=== PATIENT | male | born 1990 ===

== ENCOUNTER 2024-02-18 09:09 | Emergency (ER) | payer SELFPAY ==
[2024-02-18] MEDS: Sodium Chloride 0.9% 1,000 ML IV ONE (10:37)
[2024-02-18] MEDS: Ketorolac 30 MG/ML SDV IVPUSH ONE (10:37)
[2024-02-18 10:43] LABS: EOSINOPHILS PERCENT AUTO 4.9 % (0.0-6.0); HEMATOCRIT 39.9 % (42.0-52.0); HEMOGLOBIN 14.2 g/dL (14.0-18.0); IMMATURE GRAN ABSOLUTE AUTO 0.02 K/uL (0.00-0.05); IMMATURE GRAN PERCENT AUTO 0.5 % (0.0-0.4); LYMPHOCYTES ABSOLUTE AUTO 1.15 K/uL (1.00-4.80); LYMPHOCYTES PERCENT AUTO 28.1 % (24.0-44.0); MEAN CORPUSCULAR HEMOGLOBIN 31.4 pg (28.0-32.0); MEAN CORPUSCULAR HGB CONC 35.6 g/dL (32.0-36.0); MEAN CORPUSCULAR VOLUME 88.3 fL (83.0-99.0); MONOCYTES ABSOLUTE AUTO 0.53 K/uL (0.00-0.80); NEUTROPHILS ABSOLUTE AUTO 2.19 K/uL (1.80-7.70); NEUTROPHILS PERCENT AUTO 53.5 % (41.0-71.0); PLATELET COUNT,PLT 220 K/uL (150-400); RED BLOOD CELL COUNT 4.52 M/uL (4.52-5.90); WHITE BLOOD CELL COUNT,WBC 4.09 K/uL (3.9-11.3)
[2024-02-18 10:47] LABS: APPEARANCE,URINE CLEAR; GLUCOSE,URINE 250 mg/dL (NEGATIVE); KETONES,URINE 15 mg/dL (NEGATIVE); LEUKOCYTE ESTERASE,URINE MODERATE (NEGATIVE); NITRITE,URINE POSITIVE (NEGATIVE); OCCULT BLOOD,URINE TRACE-INTACT (NEGATIVE); PROTEIN,URINE 100 mg/dL (NEGATIVE); UROBILINOGEN,URINE >=8.0 EU/dL (<2.0)
[2024-02-18 10:53] LABS: BILIRUBIN,URINE MODERATE (NEGATIVE)
[2024-02-18 11:00] LABS: BACTERIA,URINE FEW (NEGATIVE); COLOR,URINE RED; EPITHELIAL CELLS,URINE RARE (NONE-FEW); MUCUS,URINE LIGHT (NONE-MOD); WBC,URINE 0-2 (0-5/HPF)
[2024-02-18 11:14] LABS: A/G RATIO 1.1 (0.9-1.6); ALBUMIN 3.8 g/dL (3.4-5.0); BILIRUBIN TOTAL 1.3 mg/dL (0.2-1.0); CALCIUM 8.9 mg/dL (8.5-10.1); CARBON DIOXIDE,CO2 30.3 mmol/L (21.0-32.0); CREATININE 0.8 mg/dL (0.8-1.3); EST CRCL DRUG DOSING (CG) 164.26 mL/min; MAGNESIUM 1.9 mg/dL (1.8-2.4); POTASSIUM,K 3.9 mmol/L (3.5-5.1); PROTEIN TOTAL,TP 7.3 g/dL (6.4-8.2)
[2024-02-18] MEDS: Iopamidol 755 MG/ML 500 ML Multipack Bottle IVPUSH STA (12:16)
== END 2024-02-18 13:38 | disposition home or self-care (01) ==
LOC: MW.ED 09:09
DX: N39.0 Urinary tract infection, site not specified (principal); N20.2 Calculus of kidney with calculus of ureter; Z75.8 Other problems related to medical facilities and other health care
CPT/HCPCS: 36415; 74177; 80053; 81001; 83690; 83735; 85025; 87086; 96361; 96374; 99284; J1885; J7030; Q9967